=== PATIENT | female | born 1930 | race Caucasian/White ===

== ENCOUNTER 2016-05-10 12:06 | Outpatient (CLI) | payer MEDICARE ==
[2016-05-10 12:32] LABS: #Basophils 0.1 thou/uL (0.0-0.2); #Eosinphils 0.2 thou/uL (0.0-0.7); #Monocytes 0.9 thou/uL (0.11-0.59); #Neutrophils 5.6 thou/uL (1.40-6.50); %Basophils 0.8 % (0.0-1.0); %Eosinophils 1.8 % (0.0-10.0); %Lymphocytes 22.9 % (21.0-51.0); %Monocytes 10.6 % (0.0-10.0); %Neutrophils 63.9 % (42.0-75.0); Hemoglobin 13.3 g/dL (12.0-16.0); Mean Corpuscular HGB CONC 32.3 g/dL (32.0-36.0); Mean Corpuscular Hemoglobin 33.7 pg (27.0-31.0); Mean Corpuscular Volume 104.1 fl (81.0-99.0); Mean Platelet Volume 7.5 fL (7.4-10.4); Platelet Count 215 thou/uL (130-400); RBC Distribution Width 12.7 % (11.5-14.5); Red Blood Cell (RBC) Count 3.94 mill/uL (4.20-5.40); White Blood Cell (WBC) Count 8.8 thou/uL (4.8-10.8)
[2016-05-10 12:57] LABS: ALT (SGPT) 20 U/L (0-55); AST (SGOT) 20 U/L (5-34); Alkaline Phosphatase 68 U/L (40-150); Anion Gap 11 mmol/L (10-20); BUN (Urea Nitrogen) 16 mg/dL (9.8-20.1); Bilirubin, Direct 0.3 mg/dL (0.1-0.3); Bilirubin, Total 0.6 mg/dL (0.2-1.2); Calc. Creatinine Clearance 0 mL/min (70-130); Calcium 9.7 mg/dL (7.8-10.44); Carbon Dioxide 27 mmol/L (23-31); Cardiac Risk 2.3 (Less than 4.5); Chloride 106 mmol/L (98-107); Cholesterol 152 mg/dL (< 200 Desired); Estimated GFR-MDRD 64; Glucose 95 mg/dL (83-110); HDL Cholesterol 65 mg/dL (>60 Neg Risk); LDL Cholesterol, Calculated 66 mg/dL; Protein, Total 6.2 g/dL (5.8-8.1); Sodium 139 mmol/L (136-145); Triglycerides 104 mg/dL (Less than 150)
== END 2016-05-10 12:07 | disposition home or self-care (01) ==
LOC: MADLABBHPM 12:06
PROVIDERS: ATTEND Family Medicine
DX: I48.0 Paroxysmal atrial fibrillation (principal); E78.00 Pure hypercholesterolemia, unspecified; E03.9 Hypothyroidism, unspecified
CPT/HCPCS: 36415; 80048; 80061; 80076; 84443; 85025

== ENCOUNTER 2016-07-12 10:26 | Outpatient (CLI) | payer MEDICARE ==
[2016-07-12 11:35] LABS: ALT (SGPT) 14 U/L (8-55); AST (SGOT) 16 U/L (5-34); Albumin 4.1 g/dL (3.4-4.8); Alkaline Phosphatase 70 U/L (40-150); Anion Gap 12 mmol/L (10-20); BUN (Urea Nitrogen) 15 mg/dL (9.8-20.1); Bilirubin, Total 0.8 mg/dL (0.2-1.2); Calc. Creatinine Clearance 0 mL/min (70-130); Calcium 9.9 mg/dL (7.8-10.44); Carbon Dioxide 25 mmol/L (23-31); Chloride 109 mmol/L (98-107); Estimated GFR-MDRD 69; Globulin 2.2 g/dL (2.4-3.5); Glucose 97 mg/dL (83-110); Potassium 4.1 mmol/L (3.5-5.1); Protein, Total 6.3 g/dL (6.0-8.3); Sodium 142 mmol/L (136-145)
[2016-07-12 12:43] LABS: Mean Corpuscular HGB CONC 34.3 g/dL (32.0-36.0); Mean Corpuscular Hemoglobin 35.5 pg (27.0-31.0); Mean Platelet Volume 7.7 fL (7.4-10.4); Platelet Count 208 thou/uL (130-400); RBC Distribution Width 11.5 % (11.5-14.5); Red Blood Cell (RBC) Count 3.95 mill/uL (4.20-5.40); White Blood Cell (WBC) Count 8.1 thou/uL (4.8-10.8)
== END 2016-07-12 10:27 | disposition home or self-care (01) ==
LOC: MADLAB 10:26
PROVIDERS: ATTEND Internal Medicine Cardiovascular Disease
DX: I48.0 Paroxysmal atrial fibrillation (principal)
CPT/HCPCS: 36415; 80053; 85027

== ENCOUNTER 2016-11-08 09:37 | Outpatient (CLI) | payer MEDICARE ==
--- NOTE | 2016-11-08 10:15 | RAD ---
TWO VIEWS CHEST: History: Weight loss. Date: 11-08-16 Comparison: 06-10-12 FINDINGS: Two views of the chest demonstrate calcification and ectasia of the aorta. Hyperaeration and airtrap ping compatible with changes of COPD seen. No evidence of effusions seen. IMPRESSION: Airtrapping and changes of COPD. POS: [facility]
[2016-11-08 11:12] LABS: ALT (SGPT) 21 U/L (8-55); AST (SGOT) 22 U/L (5-34); Alkaline Phosphatase 71 U/L (40-150); Anion Gap 11 mmol/L (10-20); BUN (Urea Nitrogen) 19 mg/dL (9.8-20.1); Bilirubin, Direct 0.3 mg/dL (0.1-0.3); Bilirubin, Total 0.7 mg/dL (0.2-1.2); Calc. Creatinine Clearance 0 mL/min (70-130); Calcium 10.5 mg/dL (7.8-10.44); Carbon Dioxide 27 mmol/L (23-31); Cardiac Risk 2.2 (Less than 4.5); Chloride 108 mmol/L (98-107); Cholesterol 142 mg/dl (< 200 Desired); Estimated GFR-MDRD 68; Glucose 95 mg/dL (83-110); HDL Cholesterol 65 mg/dL (>60 Neg Risk); LDL Cholesterol, Calculated 63 mg/dL; Potassium 4.5 mmol/L (3.5-5.1); Protein, Total 6.6 g/dL (6.0-8.3); Sodium 141 mmol/L (136-145); Triglycerides 70 mg/dL (Less than 150)
[2016-11-08 11:21] LABS: Free T4 (Free Thyroxine) 1.74 ng/dL (0.70-1.48); Thyroid Stimulating Hormone 0.0044 uIU/mL (0.35-4.94)
[2016-11-08 13:17] LABS: Bilirubin Negative (Negative); Blood, Urine Trace (Negative); Clarity Hazy (Clear); Glucose, Urine (Dipstick) Negative (Negative); Leukocyte Negative (Negative); Nitrite Negative (Negative); Protein, Urine (Dipstick) Trace mg/dL (Neg-Trace); Specific Gravity, Urine 1.015 (1.005-1.030); Urobilinogen 0.2 mg/dL (0.2-1.0); pH, Urine 6.5 (5.0-9.0)
[2016-11-08 13:39] LABS: Bacteria/HPF Rare-Few HPF (None Seen); RBC/HPF 0-3 HPF (0-3); Squamous Epithelial 0-3 HPF (0-3); WBC/HPF 0-3 HPF (0-3)
[2016-11-08 13:40] LABS: Crystals/HPF 1+ CA OXALATE HPF (Negative)
[2016-11-08 13:53] LABS: #Basophils 0.1 thou/uL (0.0-0.2); #Eosinphils 0.3 thou/uL (0.0-0.7); #Lymphocytes 1.4 thou/uL (1.20-3.40); #Monocytes 0.8 thou/uL (0.11-0.59); #Neutrophils 4.9 thou/uL (1.40-6.50); %Basophils 0.8 % (0.0-1.0); %Lymphocytes 18.9 % (21.0-51.0); %Monocytes 10.1 % (0.0-10.0); %Neutrophils 66.2 % (42.0-75.0); Hemoglobin 14.1 g/dL (12.0-16.0); Mean Corpuscular HGB CONC 31.3 g/dL (32.0-36.0); Mean Corpuscular Hemoglobin 31.8 pg (27.0-31.0); Mean Corpuscular Volume 101.4 fl (81.0-99.0); Mean Platelet Volume 8.3 fL (7.4-10.4); Platelet Count 223 thou/uL (130-400); RBC Distribution Width 11.5 % (11.5-14.5); Red Blood Cell (RBC) Count 4.43 mill/uL (4.20-5.40); White Blood Cell (WBC) Count 7.5 thou/uL (4.8-10.8)
== END 2016-11-08 09:38 | disposition home or self-care (01) ==
LOC: MADLABBHPM 09:37
PROVIDERS: ATTEND Family Medicine
DX: R63.4 Abnormal weight loss (principal); J44.9 Chronic obstructive pulmonary disease, unspecified
CPT/HCPCS: 36415; 71020; 80048; 80061; 80076; 80178; 81001; 84439; 84443; 84481; 85025

== ENCOUNTER 2017-09-14 14:50 | Outpatient (CLI) | payer MEDICARE ==
[2017-09-14 15:20] LABS: #Basophils 0.1 thou/uL (0.0-0.2); #Lymphocytes 1.2 thou/uL (1.20-3.40); #Monocytes 0.7 thou/uL (0.11-0.59); #Neutrophils 6.4 thou/uL (1.40-6.50); %Basophils 1.1 % (0.0-1.0); %Eosinophils 0.6 % (0.0-10.0); %Monocytes 8.1 % (0.0-10.0); %Neutrophils 76.2 % (42.0-75.0); Hemoglobin 11.7 g/dL (12.0-16.0); Mean Corpuscular HGB CONC 31.6 g/dL (32.0-36.0); Mean Corpuscular Hemoglobin 30.1 pg (27.0-31.0); Mean Corpuscular Volume 95.1 fL (78.0-98.0); Mean Platelet Volume 6.6 fL (7.4-10.4); Platelet Count 262 thou/uL (130-400); Red Blood Cell (RBC) Count 3.89 mill/uL (4.20-5.40); White Blood Cell (WBC) Count 8.4 thou/uL (4.8-10.8)
[2017-09-14 15:36] LABS: ALT (SGPT) 17 U/L (8-55); AST (SGOT) 18 U/L (5-34); Albumin 4.2 g/dL (3.4-4.8); Alkaline Phosphatase 61 U/L (40-150); Anion Gap 9 mmol/L (10-20); BUN (Urea Nitrogen) 17 mg/dL (9.8-20.1); Bilirubin, Total 0.4 mg/dL (0.2-1.2); Calc. Creatinine Clearance 0 mL/min (70-130); Calcium 9.9 mg/dL (7.8-10.44); Carbon Dioxide 27 mmol/L (23-31); Cardiac Risk 2.4 (Less than 4.5); Chloride 107 mmol/L (98-107); Cholesterol 180 mg/dl (< 200 Desired); Estimated GFR-MDRD 51; Globulin 2.4 g/dL (2.4-3.5); Glucose 98 mg/dL (83-110); HDL Cholesterol 75 mg/dL (>60 Neg Risk); LDL Cholesterol, Calculated 83 mg/dL; Potassium 4.1 mmol/L (3.5-5.1); Protein, Total 6.6 g/dL (6.0-8.3); Sodium 139 mmol/L (136-145); Triglycerides 108 mg/dL (Less than 150)
== END 2017-09-14 14:51 | disposition home or self-care (01) ==
LOC: MADLAB 14:50
PROVIDERS: ATTEND Internal Medicine Cardiovascular Disease
DX: I48.0 Paroxysmal atrial fibrillation (principal); E78.00 Pure hypercholesterolemia, unspecified; I10 Essential (primary) hypertension
CPT/HCPCS: 36415; 80053; 80061; 85025

== ENCOUNTER 2017-09-27 17:07 | Inpatient (IN) | payer MEDICARE ==
[2017-09-27] MEDS ORDERED: Bisacodyl 5 MG TAB PO PRN (21:33)
[2017-09-27] MEDS ORDERED: Ondansetron ODT 4 MG TAB PO PRN (21:34)
[2017-09-27] MEDS ORDERED: traZODone HCl 50 MG TAB PO PRN (21:37)
[2017-09-27] MEDS ORDERED: Metoprolol Tartrate 25 MG TAB PO SCH (21:45)
[2017-09-27] MEDS: Acetaminophen 325 MG TAB PO PRN (21:52)
[2017-09-28] MEDS: Acetaminophen 325 MG TAB PO PRN ×2 (02:47→15:11)
[2017-09-28 05:35] LABS: #Basophils 0.1 thou/uL (0.0-0.2); #Eosinphils 0.1 thou/uL (0.0-0.7); #Monocytes 0.8 thou/uL (0.11-0.59); #Neutrophils 4.9 thou/uL (1.40-6.50); %Basophils 1.1 % (0.0-1.0); %Eosinophils 2.2 % (0.0-10.0); %Lymphocytes 13.8 % (21.0-51.0); %Monocytes 11.4 % (0.0-10.0); %Neutrophils 71.5 % (42.0-75.0); Hemoglobin 9.3 g/dL (12.0-16.0); Mean Corpuscular HGB CONC 33.2 g/dL (32.0-36.0); Mean Corpuscular Hemoglobin 30.1 pg (27.0-31.0); Mean Corpuscular Volume 90.5 fL (78.0-98.0); Mean Platelet Volume 8.4 fL (7.4-10.4); Platelet Count 165 thou/uL (130-400); RBC Distribution Width 13.2 % (11.5-14.5); White Blood Cell (WBC) Count 6.9 thou/uL (4.8-10.8)
[2017-09-28 05:44] LABS: ALT (SGPT) 14 U/L (8-55); AST (SGOT) 20 U/L (5-34); Albumin 2.8 g/dL (3.4-4.8); Alkaline Phosphatase 66 U/L (40-150); Anion Gap 15 mmol/L (10-20); BUN (Urea Nitrogen) 12 mg/dL (9.8-20.1); Bilirubin, Total 1.2 mg/dL (0.2-1.2); Calc. Creatinine Clearance 38 mL/min (70-130); Calcium 8.7 mg/dL (7.8-10.44); Carbon Dioxide 20 mmol/L (23-31); Chloride 105 mmol/L (98-107); Estimated GFR-MDRD 81; Globulin 1.7 g/dL (2.4-3.5); Glucose 87 mg/dL (83-110); Potassium 3.9 mmol/L (3.5-5.1); Protein, Total 4.5 g/dL (6.0-8.3); Sodium 136 mmol/L (136-145)
[2017-09-28] MEDS ORDERED: Metoprolol Tartrate 25 MG TAB PO SCH (09:00)
[2017-09-28] MEDS ORDERED: traZODone HCl 50 MG TAB PO PRN (11:08)
[2017-09-28] MEDS ORDERED: Ventolin HFA Inhaler 60 PUFF INHALER INH PRN (11:14)
--- NOTE | 2017-09-28 13:08 | HP ---
DATE OF ADMISSION: Admitted to [facility] late on the evening of 09/27/2017. CHIEF COMPLAINT: Weakness following a hip fracture and repair. PRESENT ILLNESS: The patient is an 87-year-old white female who has a history of hypertension, parox ysmal atrial fibrillation for which she had been on Eliquis, hypothyroidism, bipolar disorder, insomn ia and cigarette abuse. The patient is independent of all her ADLs. She lives at her home with her who she assists with his ADLs. Her daughter lives next door who assist the patient and cheyanne eugene with their instrumental ADLs. The patient was in the [place] taking her to a dermatology appointment. She said she was i n the hallways of the building and her fell against her knocking her to the floor, landing on her left hip. She had immediate pain in the left hip and could not get up. There were people they came to her assistance and called 911. She was taken to [facility] and found to have a left in tertrochanteric fracture of the hip with some mild displacement. There she was admitted and after ev aluation and cleared for surgery, she underwent a CT of the brain, although she said she did not hit her head nor had any loss of consciousness. The CT of the brain showed no acute intracranial process and only age related changes. She underwent chest x-ray which was clear, but showed hyperinflation. X-ray of the left hip show the intertrochanteric fracture with some mild displacement. Echocardiog sergei showed normal left ventricular function with an ejection fraction of 55-60% with moderate aortic insufficiency. Her admission H&H was 11.2. The patient was taken to surgery on 09/21/2017 by orthop edic surgeon, Dr. Gerald Stevens. The patient underwent intramedullary carloz placement and a gamma nail. Postoperatively, she had some problems with confusion that was related to the anesthesia that resol kenrick. Her blood count gradually dropped down to a low of 6.7 and she said she had received a transfus ion. Her blood thinner, Eliquis was stopped after her surgery and it has not been restarted. The pa tino said she has done well. She has been managing her pain with Tylenol or acetaminophen, hydrocod one 325/10 one occasionally. She has been up walking up to 60 feet and has already walked some this morning. The patient's condition improved. She said she did have a little episode of atrial fibrill ation postop, but then has no more problem with this. The patient was transferred to [facility] late on the evening of 09/27/2017 for continued physical therapy and occupational therapy. The pat natividad was seen early on the morning of 09/28/2017 and she was able to review the history of what has h appened with her. She said she has already been up and walked some with physical therapy. Her pain has been well managed. PAST HISTORY: Hospitalized at [facility] in [place] from 09/20/2017 to 09/27/2017 for an intertrochanteric fracture of the left hip requiring surgery on 09/21/2017 with an intramedullary ro d and gamma nail placement. The patient required transfusion with 2 units due to a postop anemia. T he patient has hypertension, hypothyroidism, bipolar disorder, controlled on lithium, hypercholestero lemia, cataracts, TIA, but no recent episode, insomnia, paroxysmal atrial fibrillation for which she has been on Eliquis. In the past, she was on metoprolol and low dose, but this had to be stopped due to bradycardia. The patient has had an appendectomy in 1946 and a benign tumor removed from her left breast in 1955, a hysterectomy in 1977, cataract surgery with intraocular lens implants 2006, bladder suspension in . BTL 1953. Tremors are felt to be secondary to the lithium, generalized osteoarthritis, chronic cigarette abuse. Temporal headaches that are musculoskeletal in origin. HOME MEDICATIONS: Her home medications are as follows; oxybutynin 5 mg once a day, lithium carbonate 300 mg 1 daily and b.i.d. on Sunday and Fridays, trazodone 50 mg 2 at bedtime and may take a third i f does not go to sleep within an hour. Eliquis 2.5 mg b.i.d., which has been on hold since her surg kalie. Albuterol inhaler 2 inhalations q.i.d. and q.4h. as needed, levothyroxine 75 mcg daily, Tyleno l Extra Strength 500 mg 2 every 6 hours as needed. ALLERGIES: METOPROLOL causes bradycardia. REVIEW OF SYSTEMS: The patient says she is doing better. She does not think she has had any fever. HEENT: She has had no trouble with eye, ear, nose or throat. PULMONARY: No shortness of breath. CARDIOVASCULAR: No chest pain. GASTROINTESTINAL: No nausea or vomiting. The patient said she has not had any trouble with her wendy ls. Usually does not need anything at home. : No complaint. ADLs: Prior to her surgery, she was independent of her ADLs. HABITS: Alcohol none. Tobacco, the patient smokes for many years and continues to smoke less than a half a pack a day. Alcohol none. SOCIAL HISTORY: The patient is and lives at home with her who she assists with his A DLs. PHYSICAL EXAMINATION: GENERAL: The patient is an 87-year-old white female who has an asthenic build. She is sitting up in her bedside chair. She is alert, oriented x3, very talkative and could give me an excellent history of what had recently happened to her. She does not appear in any distress. VITAL SIGNS: Shows a temperature of 99.4, pulse 69, respirations 20, O2 sat 95% on room air. Her bl ood pressure is 126/60. Her weight is 95. Her weight in my office last on 06/11/2017 was 94, height 64 inches. HEAD: Normocephalic and atraumatic. EYES: Pupils were equal, round, reactive with bilateral intraocular lens implants. EARS: TMs are clear. NOSE: Normal. MOUTH AND THROAT: Normal. NECK: Carotids were equal and strong, no bruits. Thyroid not enlarged. LUNGS: Clear. HEART: Regular rate. No murmurs. ABDOMEN: Soft with no organomegaly, nor areas of tenderness. EXTREMITIES: Left hip, there is bruising around the left hip. She has 2 incisions, 1 over the troch anteric area and 1 more distal, both of these incisions are healing well and have madai present. D istal extremities showed no edema. NEUROLOGIC: The patient alert, oriented x3. The patient has weakness in the left leg from her recen t hip surgery. Otherwise, there is no focal weakness. LABORATORY: The lab that was done this morning shows a sodium of 136, potassium of 3.9, chloride 10 5, CO2 20, BUN 12, creatinine 0.68, GFR 81, glucose 87, AST 20, ALT 14, albumin 2.8. TSH 1.72. Lith ium level pending. H&H 9.3 and 28.1, white blood cell count 6900 with 72% segs, 14% lymphocytes, and a platelet count of 165,000. IMPRESSION: 1. Generalized weakness. A. Secondary to a fall with fracture of the left hip on 09/20/2017 and repair on 09/21/2017. B. Prior to fall she was independent of her ADLs. C. Complicated now by some generalized weakness and the need for assistance with her ADLs as of 09/19. 2. Hypertension, controlled. 3. Paroxysmal atrial fibrillation. A. Rate controlled. B. Has been on anticoagulants with Eliquis, but this has been held since her hip fracture and surger y. C. History of significant bradycardia on metoprolol which she has not been on for over a year. 4. Hypertension, controlled. 5. Hypothyroidism. A. Good control on levothyroxine 75 mcg a day with a normal TSH of 1.7. 6. Bipolar disorder. A. Controlled on lithium. 7. Insomnia. A. Controlled on trazodone. 8. Anemia. A. Secondary to recent blood loss from hip fracture and surgical repair. B. Required transfusion in the postop period with 2 units of packed RBCs. C. Hemoglobin 9.3 as of 09/28/2017. 9. Urge incontinence. A. Controlled with oxybutynin. 10. Tobacco abuse. A. Continues to smoke less than a half a pack of cigarettes a day. 11. Generalized osteoarthritis. PLAN: The patient has been admitted to [facility] to extended care for purpose of continued ph ysical therapy and occupational therapy. Her incision is healing well. Her Eliquis will be resumed once her H&H can be been demonstrated as maintaining stability and improvement. We will stop the met oprolol since this in the past has created problems with bradycardia. Her rate is well controlled an d she is presently in a sinus rhythm. We will continue GI prophylaxis. Place the patient in [facility] e. See orders.
[2017-09-28] MEDS: Docusate 100 MG CAP PO SCH (20:30)
[2017-09-28] MEDS: traZODone HCl 50 MG TAB PO SCH (20:31)
[2017-09-28] MEDS: HYDROcodone/Acetaminophen 10/325 mg Tablet PO PRN (20:31)
[2017-09-28] MEDS ORDERED: Lithium Carbonate 300 MG CAP PO SCH (21:00)
[2017-09-29 05:18] LABS: #Basophils 0.1 thou/uL (0.0-0.2); #Eosinphils 0.2 thou/uL (0.0-0.7); #Lymphocytes 1.6 thou/uL (1.20-3.40); #Monocytes 0.9 thou/uL (0.11-0.59); #Neutrophils 4.5 thou/uL (1.40-6.50); %Basophils 1.7 % (0.0-1.0); %Eosinophils 2.9 % (0.0-10.0); %Lymphocytes 22.2 % (21.0-51.0); %Monocytes 12.2 % (0.0-10.0); Hemoglobin 10.2 g/dL (12.0-16.0); Mean Corpuscular HGB CONC 33.4 g/dL (32.0-36.0); Mean Corpuscular Hemoglobin 30.6 pg (27.0-31.0); Mean Corpuscular Volume 91.9 fL (78.0-98.0); Mean Platelet Volume 8.3 fL (7.4-10.4); Platelet Count 214 thou/uL (130-400); RBC Distribution Width 13.7 % (11.5-14.5); Red Blood Cell (RBC) Count 3.32 mill/uL (4.20-5.40); White Blood Cell (WBC) Count 7.4 thou/uL (4.8-10.8)
[2017-09-29] MEDS: HYDROcodone/Acetaminophen 10/325 mg Tablet PO PRN ×3 (05:59→20:26)
[2017-09-29] MEDS: Docusate 100 MG CAP PO SCH ×2 (08:40→20:26)
[2017-09-29] MEDS: Levothyroxine Sodium 75 MCG TAB PO SCH (08:40)
[2017-09-29] MEDS ORDERED: Lithium Carbonate 300 MG CAP PO SCH (09:00)
[2017-09-29] MEDS: traZODone HCl 50 MG TAB PO SCH (20:26)
[2017-09-30] MEDS: HYDROcodone/Acetaminophen 10/325 mg Tablet PO PRN ×3 (04:50→20:14)
[2017-09-30] MEDS: Levothyroxine Sodium 75 MCG TAB PO SCH (09:58)
[2017-09-30] MEDS: Docusate 100 MG CAP PO SCH ×2 (09:59→20:14)
[2017-09-30] MEDS: traZODone HCl 50 MG TAB PO SCH (20:14)
[2017-09-30] MEDS: traZODone HCl 50 MG TAB PO PRN (23:09)
[2017-10-01] MEDS: HYDROcodone/Acetaminophen 10/325 mg Tablet PO PRN ×2 (00:11→19:13)
[2017-10-01 07:12] LABS: #Basophils 0.1 thou/uL (0.0-0.2); #Eosinphils 0.3 thou/uL (0.0-0.7); #Lymphocytes 1.8 thou/uL (1.20-3.40); #Monocytes 0.7 thou/uL (0.11-0.59); #Neutrophils 3.4 thou/uL (1.40-6.50); %Eosinophils 4.9 % (0.0-10.0); %Lymphocytes 29.1 % (21.0-51.0); %Monocytes 10.7 % (0.0-10.0); %Neutrophils 54.3 % (42.0-75.0); Hemoglobin 9.5 g/dL (12.0-16.0); Mean Corpuscular HGB CONC 31.6 g/dL (32.0-36.0); Mean Corpuscular Volume 94.9 fL (78.0-98.0); Mean Platelet Volume 6.8 fL (7.4-10.4); Platelet Count 280 thou/uL (130-400); RBC Distribution Width 15.3 % (11.5-14.5); Red Blood Cell (RBC) Count 3.17 mill/uL (4.20-5.40); White Blood Cell (WBC) Count 6.3 thou/uL (4.8-10.8)
[2017-10-01 07:33] LABS: Anion Gap 7 mmol/L (10-20); BUN (Urea Nitrogen) 11 mg/dL (9.8-20.1); Calc. Creatinine Clearance 37 mL/min (70-130); Calcium 8.4 mg/dL (7.8-10.44); Carbon Dioxide 26 mmol/L (23-31); Chloride 110 mmol/L (98-107); Estimated GFR-MDRD 78; Glucose 81 mg/dL (83-110); Potassium 4.2 mmol/L (3.5-5.1); Sodium 139 mmol/L (136-145)
[2017-10-01] MEDS: Docusate 100 MG CAP PO SCH ×2 (08:25→20:30)
[2017-10-01] MEDS: Levothyroxine Sodium 75 MCG TAB PO SCH (08:25)
--- NOTE | 2017-10-01 15:06 | PRG ---
DATE OF SERVICE: 09/29/2017 SUBJECTIVE: The patient said she is doing good this morning. She has already been up and had her br eakfast and now is resting back in bed. She said she slept good last night. She walked in the [facility] with physical therapy twice yesterday. Her pain in the left hip is well managed. She has no com plaint this morning. OBJECTIVE: The patient is lying in bed with the head elevated. She looks very comfortable and in no distress. Her vital signs show a temperature 98.8, pulse 69, respirations 20, O2 sat 96% on room ai r, blood pressure 139/63. Her lungs are clear. Heart, regular rate. Extremities, no edema. Incisi ons left hip are healing well. LABORATORY DATA: H&H this morning is up to 10.2 and 30.5, white cell count 7400 with platelet count of 214 with 61% segs, 22% lymphocytes. Tiffin level is 0.5. ASSESSMENT: 1. Generalized weakness. A. Secondary to a fall with fracture of the left hip on 09/20/2017 and repair on 09/21/2017. B. Prior to fall she was independent of her ADLs. C. Complicated now by some generalized weakness and the need for assistance with her ADLs as of 09/19. D. Improved as of 09/29/2017. 2. Hypertension, controlled. 3. Paroxysmal atrial fibrillation. A. Rate is regular with a pulse of 69 as of 09/29/2017. B. Has been on anticoagulants with Eliquis, but this has been held since her hip fracture and surger y. C. History of significant bradycardia on metoprolol which she has not been on for over a year. 4. Hypertension, controlled. 5. Hypothyroidism. A. Good control on levothyroxine 75 mcg a day with a normal TSH of 1.7. 6. Bipolar disorder. A. Controlled on lithium. 7. Insomnia. A. Controlled on trazodone. 8. Anemia. A. Secondary to recent blood loss from hip fracture and surgical repair. B. Required transfusion in the postop period with 2 units of packed RBCs. C. Hemoglobin 10.2 as of 09/29/2017. 9. Urge incontinence. A. Controlled with oxybutynin. 10. Tobacco abuse. A. Continues to smoke less than a half a pack of cigarettes a day. 11. Generalized osteoarthritis. PLAN: Continue present care. If the patient's hemoglobin continues to remain stable over the next f ew checks, we will restart her Eliquis for the paroxysmal atrial fibrillation.
--- NOTE | 2017-10-01 15:08 | PRG ---
DATE OF SERVICE: 10/01/2017 SUBJECTIVE: The patient said she is doing good today. She has already been up walking. Presently, she is in the [place] with a walker and therapist accompanying her. She is doing better with the walker and still needs assistance with her transfers. OBJECTIVE: The patient is standing, holding onto her walker and has been walking. She appears comfo rtable. She has some tremors in her arm, which are chronic, but she appears in no distress and comfo rtable. Vital signs show a temperature 97.4, pulse 67, respirations 20, O2 sat 92% on room air, bloo d pressure 155/67. Lungs were clear. Heart, regular rate. Extremities: No edema. LABORATORY DATA: Her H and H is 9.5 and 30.1, white blood cell count 6300, platelet count is 280,000 . Sodium 139, potassium 4.2, BUN 11, creatinine 0.71, glucose 81. ASSESSMENT: 1. Generalized weakness. A. Secondary to a fall with fracture of the left hip on 09/20/2017 and repair on 09/21/2017. B. Prior to fall she was independent of her ADLs. C. Complicated now by some generalized weakness and the need for assistance with her ADLs as of 09/19. D. Improved, ambulating with the use of a walker. Still needing assistance with transfers as of . 2. Hypertension, controlled. 3. Paroxysmal atrial fibrillation. A. Regular rate with good control as of 10/01/2017. B. Has been on anticoagulants with Eliquis, but this has been held since her hip fracture and surger y. C. History of significant bradycardia on metoprolol which she has not been on for over a year. 4. Hypertension, controlled. 5. Hypothyroidism. A. Good control on levothyroxine 75 mcg a day with a normal TSH of 1.7. 6. Bipolar disorder. A. Controlled on lithium. 7. Insomnia. A. Controlled on trazodone. 8. Anemia. A. Secondary to recent blood loss from hip fracture and surgical repair. B. Required transfusion in the postop period with 2 units of packed RBCs. C. Hemoglobin 9.5 as of 10/01/2017. 9. Urge incontinence. A. Controlled with oxybutynin. 10. Tobacco abuse. A. Continues to smoke less than a half a pack of cigarettes a day. 11. Generalized osteoarthritis. PLAN: We will continue the present care. If H and H will remain stable, we should be able to restar t the Eliquis soon. We will recheck a CBC on 10/03/2017. Continue PT and OT.
[2017-10-01] MEDS: traZODone HCl 50 MG TAB PO SCH (20:30)
[2017-10-01] MEDS: traZODone HCl 50 MG TAB PO PRN (22:48)
[2017-10-02] MEDS: HYDROcodone/Acetaminophen 10/325 mg Tablet PO PRN ×3 (00:32→23:04)
[2017-10-02] MEDS: Docusate 100 MG CAP PO SCH ×2 (08:23→20:49)
[2017-10-02] MEDS: Levothyroxine Sodium 75 MCG TAB PO SCH (08:23)
--- NOTE | 2017-10-02 12:56 | PRG ---
DATE OF SERVICE: 10/02/2017 SUBJECTIVE: The patient said she is doing good. She is making progress with therapies. She is havi ng some tremors in her hand and some numbness in her hands. OBJECTIVE: The patient is alert, looks very comfortable, in no distress. Her temperature is 97.8, p ulse 67, respirations 18, O2 sat 94% on room air, blood pressure 111/58. Lungs are clear. Heart, re gular rate. Extremities, no edema. Incisions on the left hip are healing well. ASSESSMENT: 1. Generalized weakness. A. Secondary to a fall with fracture of the left hip on 09/20/2017 and repair on 09/21/2017. B. Prior to fall she was independent of her ADLs. C. Complicated now by some generalized weakness and the need for assistance with her ADLs as of 09/19. D. Improved, ambulating with the use of a walker. Still needing assistance with transfers as of . 2. Hypertension, controlled. 3. Paroxysmal atrial fibrillation. A. Regular rate with good control as of 10/02/2017. B. Has been on anticoagulants with Eliquis, but this has been held since her hip fracture and surger y. C. History of significant bradycardia on metoprolol which she has not been on for over a year. 4. Hypertension, controlled. 5. Hypothyroidism. A. Good control on levothyroxine 75 mcg a day with a normal TSH of 1.7. 6. Bipolar disorder. A. Controlled on lithium. 7. Insomnia. A. Controlled on trazodone. 8. Anemia. A. Secondary to recent blood loss from hip fracture and surgical repair. B. Required transfusion in the postop period with 2 units of packed RBCs. C. Hemoglobin 9.5 as of 10/01/2017. 9. Urge incontinence. A. Controlled with oxybutynin. 10. Tobacco abuse. A. Continues to smoke less than a half a pack of cigarettes a day. 11. Generalized osteoarthritis. PLAN: Continue present care. Continue physical therapy. The numbness in the hands could be a carpa l tunnel with the increased exercise and use of a walker. We will observe this for now unless this d oes not resolve or gets worse. We will recheck CBC in the morning. If H and H remained stable, cons ider restarting the Eliquis. We will remove skin madai from incision 2 weeks postop, which will be on 10/05/2017.
[2017-10-02] MEDS: traZODone HCl 50 MG TAB PO SCH (20:49)
[2017-10-03] MEDS: traZODone HCl 50 MG TAB PO PRN (00:54)
[2017-10-03 05:42] LABS: #Basophils 0.1 thou/uL (0.0-0.2); #Monocytes 0.7 thou/uL (0.11-0.59)
[2017-10-03] MEDS: Docusate 100 MG CAP PO SCH ×2 (08:16→20:37)
[2017-10-03] MEDS: Levothyroxine Sodium 75 MCG TAB PO SCH (08:16)
[2017-10-03] MEDS: HYDROcodone/Acetaminophen 10/325 mg Tablet PO PRN ×3 (08:17→20:38)
--- NOTE | 2017-10-03 10:09 | PRG ---
DATE OF SERVICE: 10/03/2017 SUBJECTIVE: The patient thinks she is doing alright. She is doing good with her walking, still requ iring assistance with transfers. OBJECTIVE: GENERAL: The patient is lying in bed. She is alert, appears comfortable in no distress. VITAL SIGNS: Temperature is 98, pulse 67, respirations 18, O2 sat 94% on room air, blood pressure 11 1/57. LUNGS: Clear. HEART: Regular rate. EXTREMITIES: No edema. Incisions over the left hip are healing. LABORATORY DATA: CBC pending. ASSESSMENT: 1. Generalized weakness. A. Secondary to a fall with fracture of the left hip on 09/20/2017 and repair on 09/21/2017. B. Prior to fall she was independent of her ADLs. C. Complicated now by some generalized weakness and the need for assistance with her ADLs as of 09/19. D. Improved, ambulating with the use of a walker. Still needing assistance with transfers as of . 2. Hypertension, controlled. 3. Paroxysmal atrial fibrillation. A. Regular rate with good control as of 10/02/2017. B. Has been on anticoagulants with Eliquis, but this has been held since her hip fracture and surger y. C. History of significant bradycardia on metoprolol which she has not been on for over a year. 4. Hypertension, controlled. 5. Hypothyroidism. A. Good control on levothyroxine 75 mcg a day with a normal TSH of 1.7. 6. Bipolar disorder. A. Controlled on lithium. 7. Insomnia. A. Controlled on trazodone. 8. Anemia. A. Secondary to recent blood loss from hip fracture and surgical repair. B. Required transfusion in the postop period with 2 units of packed RBCs. C. Hemoglobin 9.5 as of 10/01/2017. 9. Urge incontinence. A. Controlled with oxybutynin. 10. Tobacco abuse. A. Continues to smoke less than a half a pack of cigarettes a day. 11. Generalized osteoarthritis. PLAN: Continue PT. Continue OT. We will see what the blood count looks like today. If remains sta ble, consider restarting her Eliquis.
[2017-10-03 12:31] LABS: #Eosinphils 0.2 thou/uL (0.0-0.7); #Lymphocytes 1.4 thou/uL (1.20-3.40); #Neutrophils 4.2 thou/uL (1.40-6.50); %Eosinophils 3.7 % (0.0-10.0); %Lymphocytes 21.5 % (21.0-51.0); %Monocytes 10.2 % (0.0-10.0); %Neutrophils 63.5 % (42.0-75.0); Hemoglobin 9.4 g/dL (12.0-16.0); Mean Corpuscular Hemoglobin 30.3 pg (27.0-31.0); Mean Corpuscular Volume 94.6 fL (78.0-98.0); Mean Platelet Volume 6.3 fL (7.4-10.4); Platelet Count 330 thou/uL (130-400); RBC Distribution Width 15.1 % (11.5-14.5); Red Blood Cell (RBC) Count 3.09 mill/uL (4.20-5.40); White Blood Cell (WBC) Count 6.5 thou/uL (4.8-10.8)
[2017-10-03] MEDS: traZODone HCl 50 MG TAB PO SCH (20:37)
[2017-10-04] MEDS: HYDROcodone/Acetaminophen 10/325 mg Tablet PO PRN ×2 (04:30→18:11)
[2017-10-04] MEDS: Levothyroxine Sodium 75 MCG TAB PO SCH (05:39)
[2017-10-04] MEDS: Docusate 100 MG CAP PO SCH ×2 (08:26→21:04)
--- NOTE | 2017-10-04 15:00 | PRG ---
DATE OF SERVICE: 10/04/2017 SUBJECTIVE: The patient thinks she is doing better. She seems stronger. She said she thinks she is transferring a little better. She said the numbness in the hands are better. Yesterday, the therap ist worked with her hands. OBJECTIVE: GENERAL: The patient is sitting up in her bedside chair, just starting her breakfast. VITAL SIGNS: Show a temperature of 97.7, pulse 64, respirations 16, O2 sat 94% on room air, blood pr essure 127/60. LUNGS: Clear. HEART: Regular rate. EXTREMITIES: No edema. LABORATORY DATA: H&H yesterday was 9.4 and 29.3. White cell count 6500 with 64% segs, 22% lymphocyt es, and a platelet count of 330,000. ASSESSMENT: 1. Generalized weakness. A. Secondary to a fall with fracture of the left hip on 09/20/2017 and repair on 09/21/2017. B. Prior to fall she was independent of her ADLs. C. Complicated now by some generalized weakness and the need for assistance with her ADLs as of 09/19. D. Improved, ambulating with the use of a walker. Still needing assistance with transfers as of . 2. Hypertension, controlled. 3. Paroxysmal atrial fibrillation. A. Regular rate with good control as of 10/04/2017. B. Has been on anticoagulants with Eliquis, but this has been held since her hip fracture and surger y. C. History of significant bradycardia on metoprolol which she has not been on for over a year. 4. Hypertension, controlled. 5. Hypothyroidism. A. Good control on levothyroxine 75 mcg a day with a normal TSH of 1.7. 6. Bipolar disorder. A. Controlled on lithium. 7. Insomnia. A. Controlled on trazodone. 8. Anemia. A. Secondary to recent blood loss from hip fracture and surgical repair. B. Required transfusion in the postop period with 2 units of packed RBCs. C. Hemoglobin 9.5 as of 10/01/2017. 9. Urge incontinence. A. Controlled with oxybutynin. 10. Tobacco abuse. A. Continues to smoke less than a half a pack of cigarettes a day. 11. Generalized osteoarthritis. PLAN: Continue present care. Continue OT, PT. We will recheck CBC in the morning.
[2017-10-04] MEDS: traZODone HCl 50 MG TAB PO SCH (21:05)
[2017-10-05] MEDS: HYDROcodone/Acetaminophen 10/325 mg Tablet PO PRN ×2 (04:00→21:54)
[2017-10-05] MEDS: Levothyroxine Sodium 75 MCG TAB PO SCH (05:03)
[2017-10-05 05:28] LABS: #Basophils 0.1 thou/uL (0.0-0.2); #Eosinphils 0.2 thou/uL (0.0-0.7); #Lymphocytes 1.4 thou/uL (1.20-3.40); #Monocytes 0.7 thou/uL (0.11-0.59); #Neutrophils 4.9 thou/uL (1.40-6.50); %Eosinophils 3.2 % (0.0-10.0); %Lymphocytes 18.8 % (21.0-51.0); Hemoglobin 9.6 g/dL (12.0-16.0); Mean Corpuscular HGB CONC 32.4 g/dL (32.0-36.0); Mean Corpuscular Hemoglobin 30.8 pg (27.0-31.0); Mean Corpuscular Volume 95.1 fL (78.0-98.0); Mean Platelet Volume 6.2 fL (7.4-10.4); Platelet Count 397 thou/uL (130-400); RBC Distribution Width 15.1 % (11.5-14.5); Red Blood Cell (RBC) Count 3.12 mill/uL (4.20-5.40); White Blood Cell (WBC) Count 7.3 thou/uL (4.8-10.8)
[2017-10-05] MEDS: Docusate 100 MG CAP PO SCH ×2 (08:31→20:44)
--- NOTE | 2017-10-05 13:16 | PRG ---
DATE OF SERVICE: 10/05/2017 SUBJECTIVE: The patient is doing better. She is working with physical therapy and walking with her walker with wheels and now is walking up to 150 feet twice a day with standby assistance. She is req uiring supervision with her transfers because she is still a little unsteady with this. The patient does not have any breathing trouble. Overall, she is feeling well. OBJECTIVE: The patient is sitting up in her chair. She is alert, appears in no distress. Her tempe rature is 98.9, pulse 66, respirations 16, O2 sat 95%, blood pressure 149/68, earlier 127/60. Her vianca ngs are clear. On deep inspiration there are some little mild crackles at base. Some of these are m ore chronic. Her heart has a regular rate. Extremities, no edema. The patient was able to stand on her own, but was just a little unsteady in the process of getting up to her feet. Once on her feet with her walker stabilizing her, she was fine. Her incision over the left hip is healing well. The madai will be removed today. Her H&H is 9.6 and 29.6, WBC count 7300 with 67% segs, 19% lymphocyte s, platelet count 397,000. ASSESSMENT: 1. Generalized weakness. A. Secondary to a fall with fracture of the left hip on 09/20/2017 and repair on 09/21/2017. B. Prior to fall she was independent of her ADLs. C. Complicated now by some generalized weakness and the need for assistance with her ADLs as of 09/19. D. Improved, ambulating up to 150 feet x2 with a rolling walker and standby assistance, doing better with her transfers, but still just a little unsteady, requiring standby assistance as of 10/05/2017. 2. Hypertension, controlled. 3. Paroxysmal atrial fibrillation. A. Regular rate with good control as of 10/05/2017. B. Has been on anticoagulants with Eliquis, but this has been held since her hip fracture and surger y. C. History of significant bradycardia on metoprolol which she has not been on for over a year. 4. Hypertension, controlled. 5. Hypothyroidism. A. Good control on levothyroxine 75 mcg a day with a normal TSH of 1.7. 6. Bipolar disorder. A. Controlled on lithium. 7. Insomnia. A. Controlled on trazodone. 8. Anemia. A. Secondary to recent blood loss from hip fracture and surgical repair. B. Required transfusion in the postop period with 2 units of packed RBCs. C. Stable with hemoglobin 9.6 as of 10/05/2017. 9. Urge incontinence. A. Controlled with oxybutynin. 10. Tobacco abuse. A. Continues to smoke less than a half a pack of cigarettes a day. 11. Generalized osteoarthritis. PLAN: The patient is doing better. Her strength is improving. She still needs physical therapy an d still needs some time and still more practice particularly with her transfers. The skin madai wi ll be removed from the 2 small incisions on the left hip. Her H&H has been stable and gradually impr oving. We will restart her Eliquis 2.5 mg b.i.d. for her paroxysmal atrial fibrillation and continue to monitor her H&H.
[2017-10-05] MEDS: Apixaban 5 MG TAB PO SCH ×2 (13:35→20:44)
[2017-10-05] MEDS: traZODone HCl 50 MG TAB PO SCH (20:48)
[2017-10-06] MEDS: HYDROcodone/Acetaminophen 10/325 mg Tablet PO PRN ×2 (01:44→08:17)
[2017-10-06] MEDS: Levothyroxine Sodium 75 MCG TAB PO SCH (05:52)
[2017-10-06] MEDS: Apixaban 5 MG TAB PO SCH ×2 (08:16→20:18)
[2017-10-06] MEDS: Docusate 100 MG CAP PO SCH ×2 (08:17→20:18)
[2017-10-06] MEDS: traZODone HCl 50 MG TAB PO SCH (20:18)
[2017-10-07] MEDS: HYDROcodone/Acetaminophen 10/325 mg Tablet PO PRN ×3 (00:26→20:16)
[2017-10-07] MEDS: Levothyroxine Sodium 75 MCG TAB PO SCH (05:52)
[2017-10-07] MEDS: Apixaban 5 MG TAB PO SCH ×2 (08:10→20:14)
[2017-10-07] MEDS: Docusate 100 MG CAP PO SCH ×2 (08:11→20:15)
[2017-10-07] MEDS: traZODone HCl 50 MG TAB PO SCH (20:15)
[2017-10-07] MEDS: Oxybutynin 5 MG TAB PO SCH (20:18)
[2017-10-08] MEDS: Levothyroxine Sodium 75 MCG TAB PO SCH (05:15)
[2017-10-08 05:23] LABS: #Basophils 0.1 thou/uL (0.0-0.2); #Eosinphils 0.2 thou/uL (0.0-0.7); #Lymphocytes 1.4 thou/uL (1.20-3.40); #Neutrophils 4.1 thou/uL (1.40-6.50); %Basophils 1.5 % (0.0-1.0); %Eosinophils 3.6 % (0.0-10.0); %Lymphocytes 20.2 % (21.0-51.0); %Monocytes 14.1 % (0.0-10.0); %Neutrophils 60.6 % (42.0-75.0); Hemoglobin 9.4 g/dL (12.0-16.0); Mean Corpuscular HGB CONC 31.8 g/dL (32.0-36.0); Mean Corpuscular Hemoglobin 30.6 pg (27.0-31.0); Mean Corpuscular Volume 96.1 fL (78.0-98.0); Platelet Count 406 thou/uL (130-400); RBC Distribution Width 15.3 % (11.5-14.5); Red Blood Cell (RBC) Count 3.07 mill/uL (4.20-5.40); White Blood Cell (WBC) Count 6.7 thou/uL (4.8-10.8)
[2017-10-08 05:35] LABS: Anion Gap 10 mmol/L (10-20); BUN (Urea Nitrogen) 15 mg/dL (9.8-20.1); Calc. Creatinine Clearance 40 mL/min (70-130); Calcium 8.6 mg/dL (7.8-10.44); Carbon Dioxide 24 mmol/L (23-31); Chloride 111 mmol/L (98-107); Estimated GFR-MDRD 84; Glucose 87 mg/dL (83-110); Potassium 4.5 mmol/L (3.5-5.1); Sodium 140 mmol/L (136-145)
[2017-10-08] MEDS: Docusate 100 MG CAP PO SCH ×2 (08:38→20:40)
[2017-10-08] MEDS: Apixaban 5 MG TAB PO SCH ×2 (08:39→20:42)
--- NOTE | 2017-10-08 08:47 | PRG ---
DATE OF SERVICE: 10/07/2017 SUBJECTIVE: The patient said she is doing fine. She has had a busy morning. She has been up walkin g and has had a shower, had breakfast. Now she is back in bed resting before lunch. She had her ski n madai taken out of her hip. Two days ago, that area is healing well. She has no complaint. She has no trouble since. We will restart the Eliquis. OBJECTIVE: GENERAL: The patient is lying in bed, alert, talkative, appears very comfortable in no distress. VITAL SIGNS: Her temperature is 98.4, pulse 73, respirations 18, O2 sat 94% on room air, blood press ure 132/74. LUNGS: Clear. HEART: Regular rate. EXTREMITIES: No edema. ASSESSMENT: 1. Generalized weakness. A. Secondary to a fall with fracture of the left hip on 09/20/2017 and repair on 09/21/2017. B. Prior to fall she was independent of her ADLs. C. Complicated now by some generalized weakness and the need for assistance with her ADLs as of 09/19. D. Improved, ambulating up to 150 feet x2 with a rolling walker and standby assistance, doing better with her transfers, but still just a little unsteady, requiring standby assistance as of 10/07/2017. 2. Hypertension, controlled. 3. Paroxysmal atrial fibrillation. A. Regular rate with good control as of 10/07/2017. B. Has been on anticoagulants with Eliquis, but this has been held since her hip fracture and surger y. C. History of significant bradycardia on metoprolol which she has not been on for over a year. 4. Hypertension, controlled. 5. Hypothyroidism. A. Good control on levothyroxine 75 mcg a day with a normal TSH of 1.7. 6. Bipolar disorder. A. Controlled on lithium. 7. Insomnia. A. Controlled on trazodone. 8. Anemia. A. Secondary to recent blood loss from hip fracture and surgical repair. B. Required transfusion in the postop period with 2 units of packed RBCs. C. Stable with hemoglobin 9.6 as of 10/05/2017. 9. Urge incontinence. A. Controlled with oxybutynin. 10. Tobacco abuse. A. Continues to smoke less than a half a pack of cigarettes a day. 11. Generalized osteoarthritis. PLAN: Continue present care. Continue PT and OT. We will start patient back on her oxybutynin that she takes 5 mg at nighttime. We will recheck CBC in the morning.
--- NOTE | 2017-10-08 08:49 | PRG ---
DATE OF SERVICE: 10/08/2017 SUBJECTIVE: The patient said she had a very good night. She slept well. This morning she is feelin g well, preparing to begin her work with physical therapy. She is having no trouble with her breathi ng. Her left hip feels good. OBJECTIVE: The patient is sitting up in a bedside chair. She is alert, talkative, appears very comf ortable and in no distress. Her vital signs shows temperature 98, pulse 71, respirations 18, O2 sat 96% on room air, blood pressure 137/73. Her lungs are clear except for some rales in the right poste rior base. Heart, regular rate. Extremities; no edema. LABORATORY: Shows a hemoglobin of 9.4, hematocrit 29.5, white cell count 6,700 with 61% segs, 20% ly mphocytes, platelet count of 406,000. Previous hemoglobin was 9.6, sodium 140, potassium 4.5, BUN 15 , creatinine 0.6, GFR 84, glucose 87. ASSESSMENT: 1. Generalized weakness. A. Secondary to a fall with fracture of the left hip on 09/20/2017 and repair on 09/21/2017. B. Prior to fall she was independent of her ADLs. C. Complicated now by some generalized weakness and the need for assistance with her ADLs as of 09/19. D. Improved. Ambulating up to 150 feet with a rolling walker and standby assistance. Improving wit h her transfer, but requiring some standby assistance as of 10/08/2017. 2. Hypertension, controlled. 3. Paroxysmal atrial fibrillation. A. Regular rate with good control as of 10/08/2017. B. Has been on anticoagulants with Eliquis, but this has been held since her hip fracture and surger y. C. History of significant bradycardia on metoprolol which she has not been on for over a year. 4. Hypothyroidism. A. Good control on levothyroxine 75 mcg a day with a normal TSH of 1.7. 5. Bipolar disorder. A. Controlled on lithium. 6. Insomnia. A. Controlled on trazodone. 7. Anemia. A. Secondary to recent blood loss from hip fracture and surgical repair. B. Required transfusion in the postop period with 2 units of packed RBCs. C. Stable with hemoglobin 9.6 as of 10/05/2017. Hemoglobin 9.4 as of 10/08/2017. 8. Urge incontinence. A. Controlled with oxybutynin. 9. Tobacco abuse. A. Continues to smoke less than a half a pack of cigarettes a day. 10. Generalized osteoarthritis. PLAN: Continue present care, continue PT. Will continue the Eliquis. Will recheck a hemoglobin on 10/10/2017.
[2017-10-08] MEDS: traZODone HCl 50 MG TAB PO SCH (20:42)
[2017-10-08] MEDS: Oxybutynin 5 MG TAB PO SCH (20:42)
[2017-10-08] MEDS: HYDROcodone/Acetaminophen 10/325 mg Tablet PO PRN (20:44)
[2017-10-09] MEDS: Levothyroxine Sodium 75 MCG TAB PO SCH (05:45)
[2017-10-09] MEDS: HYDROcodone/Acetaminophen 10/325 mg Tablet PO PRN ×2 (05:56→22:27)
[2017-10-09] MEDS: Apixaban 5 MG TAB PO SCH ×2 (08:26→20:04)
[2017-10-09] MEDS: Docusate 100 MG CAP PO SCH ×2 (08:27→20:02)
--- NOTE | 2017-10-09 12:38 | PRG ---
DATE OF SERVICE: 10/09/2017 SUBJECTIVE: The patient said she is doing good. Nurses reported that she had a small area of rednes s on her sacral area that developed into tiny blister that ruptured. This is being cleaned and dress ed with a Mepilex dressing. Physical therapist said the patient did very well with her walking with her walker, did much better with her transfers. OBJECTIVE: The patient is standing, holding on to her walker. She is alert, appears very comfortabl e, in no distress. Vital signs; temperature 98.5, pulse 70, respirations 16, O2 sat 95% on room air, blood pressure 149/71. Lungs, there are some early rales at the bases; otherwise clear. Heart, reg ular rate. Extremities; no edema. ASSESSMENT: 1. Generalized weakness. A. Secondary to a fall with fracture of the left hip on 09/20/2017 and repair on 09/21/2017. B. Prior to fall she was independent of her ADLs. C. Complicated now by some generalized weakness and the need for assistance with her ADLs as of 09/19. D. Improved, ambulating up to 150 feet with a rolling walker and just standby assistance. Transfers were improving and she is doing better with just standby assistance as of 10/09/2017. 2. Hypertension, controlled. 3. Paroxysmal atrial fibrillation. A. Regular rate with good control as of 10/09/2017. B. Has been on anticoagulants with Eliquis, but this has been held since her hip fracture and surger y. C. History of significant bradycardia on metoprolol which she has not been on for over a year. 4. Hypothyroidism. A. Good control on levothyroxine 75 mcg a day with a normal TSH of 1.7. 5. Bipolar disorder. A. Controlled on lithium. 6. Insomnia. A. Controlled on trazodone. 7. Anemia. A. Secondary to recent blood loss from hip fracture and surgical repair. B. Required transfusion in the postop period with 2 units of packed RBCs. C. Stable with hemoglobin 9.6 as of 10/05/2017. Hemoglobin 9.4 as of 10/08/2017. 8. Urge incontinence. A. Controlled with oxybutynin. 9. Tobacco abuse. A. Continues to smoke less than a half a pack of cigarettes a day. 10. Generalized osteoarthritis. PLAN: Continue present care. Continue physical therapy. Therapist in OT are working with [facility] [place] for her to probably return to her home on 10/12/2017.
[2017-10-09] MEDS: traZODone HCl 50 MG TAB PO SCH (20:03)
[2017-10-09] MEDS: Oxybutynin 5 MG TAB PO SCH (20:03)
[2017-10-10] MEDS: Acetaminophen 325 MG TAB PO PRN (00:16)
[2017-10-10 05:23] LABS: #Basophils 0.1 thou/uL (0.0-0.2); #Eosinphils 0.2 thou/uL (0.0-0.7); #Lymphocytes 1.3 thou/uL (1.20-3.40); #Monocytes 0.8 thou/uL (0.11-0.59); #Neutrophils 3.5 thou/uL (1.40-6.50); %Basophils 1.3 % (0.0-1.0); %Eosinophils 3.3 % (0.0-10.0); %Lymphocytes 21.8 % (21.0-51.0); %Monocytes 13.6 % (0.0-10.0); %Neutrophils 59.9 % (42.0-75.0); Hemoglobin 9.2 g/dL (12.0-16.0); Mean Corpuscular HGB CONC 32.5 g/dL (32.0-36.0); Mean Corpuscular Hemoglobin 30.9 pg (27.0-31.0); Mean Corpuscular Volume 95.1 fL (78.0-98.0); Mean Platelet Volume 5.8 fL (7.4-10.4); Platelet Count 373 thou/uL (130-400); RBC Distribution Width 15.1 % (11.5-14.5); Red Blood Cell (RBC) Count 2.97 mill/uL (4.20-5.40); White Blood Cell (WBC) Count 5.8 thou/uL (4.8-10.8)
[2017-10-10] MEDS: Levothyroxine Sodium 75 MCG TAB PO SCH (05:44)
[2017-10-10] MEDS: Apixaban 5 MG TAB PO SCH ×2 (09:02→20:49)
[2017-10-10] MEDS: Docusate 100 MG CAP PO SCH ×2 (09:02→20:49)
--- NOTE | 2017-10-10 09:39 | PRG ---
DATE OF SERVICE: 10/10/2017 SUBJECTIVE: The patient said she is feeling good. She has already been arounds the hallways for her first walk of the day. She said she is doing better with her walking. She is using her walker with wheels on the front. She is doing better on her transfers and feeling like she is going to be able to do okay with the tentative discharge date of 10/12/2017. OBJECTIVE: The patient is sitting up in her bedside chair preparing to have her breakfast. She is t alkative, alert, appears very comfortable, in no distress. Her vital signs shows a temperature of 97 .9, pulse 67, respirations 18, O2 saturation 96%, blood pressure 143/69. Lungs are clear except for some coarse early rales at the base that are chronic and more apparent with deeper inspiration. Ther e is no wheeze or rhonchi. Anterior chest is clear. Heart; regular rate. Extremities; no edema. The patient's lab shows a hemoglobin of 9.2 and 28.3 with a WBC count 5.8 with 60% segs, 22% lymphocy fletcher, platelet count of 373,000. ASSESSMENT: 1. Generalized weakness. A. Secondary to a fall with fracture of the left hip on 09/20/2017 and repair on 09/21/2017. B. Prior to fall she was independent of her ADLs. C. Complicated now by some generalized weakness and the need for assistance with her ADLs as of 09/19. D. Improved, ambulating up to 150 feet with a rolling walker and just standby assistance. Transfers were improving and she is doing better with just standby assistance as of 10/10/2017. 2. Hypertension, controlled. 3. Paroxysmal atrial fibrillation. A. Regular rate with good control as of 10/10/2017. B. Has been on anticoagulants with Eliquis, but this has been held since her hip fracture and surger y. C. History of significant bradycardia on metoprolol which she has not been on for over a year. 4. Hypothyroidism. A. Good control on levothyroxine 75 mcg a day with a normal TSH of 1.7. 5. Bipolar disorder. A. Controlled on lithium. 6. Insomnia. A. Controlled on trazodone. 7. Anemia. A. Secondary to recent blood loss from hip fracture and surgical repair. B. Required transfusion in the postop period with 2 units of packed RBCs. C. Hemoglobin 9.2 as of 10/10/2017. 8. Urge incontinence. A. Controlled with oxybutynin. 9. Tobacco abuse. A. Continues to smoke less than a half a pack of cigarettes a day. 10. Generalized osteoarthritis. PLAN: Continue present care. Repeat CBC in the morning. Continue PT and OT.
[2017-10-10] MEDS: HYDROcodone/Acetaminophen 10/325 mg Tablet PO PRN (20:48)
[2017-10-10] MEDS: Oxybutynin 5 MG TAB PO SCH (20:49)
[2017-10-10] MEDS: traZODone HCl 50 MG TAB PO SCH (20:49)
[2017-10-11] MEDS: HYDROcodone/Acetaminophen 10/325 mg Tablet PO PRN ×2 (02:02→21:40)
[2017-10-11] MEDS: Levothyroxine Sodium 75 MCG TAB PO SCH (05:47)
[2017-10-11 06:00] LABS: #Basophils 0.1 thou/uL (0.0-0.2); #Eosinphils 0.2 thou/uL (0.0-0.7); #Lymphocytes 1.3 thou/uL (1.20-3.40); #Monocytes 0.7 thou/uL (0.11-0.59); #Neutrophils 2.9 thou/uL (1.40-6.50); %Basophils 1.4 % (0.0-1.0); %Eosinophils 4.4 % (0.0-10.0); %Lymphocytes 24.7 % (21.0-51.0); %Neutrophils 55.5 % (42.0-75.0); Hemoglobin 9.4 g/dL (12.0-16.0); Mean Corpuscular HGB CONC 31.2 g/dL (32.0-36.0); Mean Corpuscular Volume 96.3 fL (78.0-98.0); Mean Platelet Volume 5.8 fL (7.4-10.4); Platelet Count 355 thou/uL (130-400); RBC Distribution Width 14.9 % (11.5-14.5); Red Blood Cell (RBC) Count 3.12 mill/uL (4.20-5.40); White Blood Cell (WBC) Count 5.1 thou/uL (4.8-10.8)
[2017-10-11] MEDS: Docusate 100 MG CAP PO SCH ×2 (08:12→20:46)
[2017-10-11] MEDS: Apixaban 5 MG TAB PO SCH ×2 (08:12→20:46)
--- NOTE | 2017-10-11 12:15 | PRG ---
DATE OF SERVICE: 10/11/2017 SUBJECTIVE: The patient said she is better. She is walking better, using a walker and she is transf erring better. OBJECTIVE: The patient is sitting up in her bedside chair. She is alert, talkative, appears very co mfortable, in no distress. Her vital signs shows a temperature of 97.9, pulse 61, respirations 18, O 2 sat 94% on room air, blood pressure 125/59. Her lungs have some chronic rales at the bases. The r emainder of the chest is clear. Heart; regular rate. Extremities; no edema. The patient was able t o stand from the seated position in her chair without any assistance and seemed stable. She was able to take her walker and walk around in the room, sit on her bed, get up, then return to the chair and sit down and then get up with the aid of her walker. She did this very well. She has made excellen t progress and thinks she will do well at home with her family's assistance. Hemoglobin today was 9 .4. ASSESSMENT: 1. Generalized weakness. A. Secondary to a fall with fracture of the left hip on 09/20/2017 and repair on 09/21/2017. B. Prior to fall she was independent of her ADLs. C. Complicated now by some generalized weakness and the need for assistance with her ADLs as of 09/19. D. Improved. Ambulating up to 150 feet with a rolling walker with standby assistance and transferri ng independently with just standby assistance as of 10/11/2017. 2. Hypertension, controlled. 3. Paroxysmal atrial fibrillation. A. Regular rate with good control as of 10/11/2017. B. Has been on anticoagulants with Eliquis, but this has been held since her hip fracture and surger y. C. History of significant bradycardia on metoprolol which she has not been on for over a year. 4. Hypothyroidism. A. Good control on levothyroxine 75 mcg a day with a normal TSH of 1.7. 5. Bipolar disorder. A. Controlled on lithium. 6. Insomnia. A. Improved. The patient is using one of her hydrocodone at nighttime. She says she sleeps very we ll with this and not using the trazodone as of 10/11/2017. 7. Anemia. A. Secondary to recent blood loss from hip fracture and surgical repair. B. Required transfusion in the postop period with 2 units of packed RBCs. C. Hemoglobin 9.4 as of 10/11/2017. 8. Urge incontinence. A. Controlled with oxybutynin. 9. Tobacco abuse. A. Continues to smoke less than a half a pack of cigarettes a day. 10. Generalized osteoarthritis. PLAN: Continue PT, continue OT, continue the Eliquis. Plan on discharge in the morning. The family is making preparations.
[2017-10-11 17:08] VITALS: BMI 17.8
[2017-10-11] MEDS: Oxybutynin 5 MG TAB PO SCH (20:47)
[2017-10-12] MEDS: HYDROcodone/Acetaminophen 10/325 mg Tablet PO PRN (02:15)
[2017-10-12] MEDS: Levothyroxine Sodium 75 MCG TAB PO SCH (06:03)
[2017-10-12 07:32] VITALS: BP 127/66; TEMP 97.5
[2017-10-12] MEDS: Apixaban 5 MG TAB PO SCH (09:05)
[2017-10-12] MEDS: Docusate 100 MG CAP PO SCH (09:06)
--- NOTE | 2017-10-12 15:14 | DIS ---
DATE OF ADMISSION: To extended care on 09/27/2017 DATE OF DISCHARGE: 10/12/2017 FINAL DIAGNOSES: 1. Generalized weakness. A. Secondary to a fall with fracture of the left hip on 09/20/2017 and repair on 09/21/2017. B. Prior to fall she was independent of her ADLs. C. Complicated now by some generalized weakness and the need for assistance with her ADLs as of 09/19. D. Improved. Ambulating up to 150 feet with a rolling walker with standby assistance and transferri ng independently with just standby assistance as of 10/12/2017. 2. Hypertension, controlled. 3. Paroxysmal atrial fibrillation. A. Regular rate with good control as of 10/12/2017. B. Eliquis has been restarted and hemoglobin has remained stable. C. History of significant bradycardia on metoprolol which she has not been on for over a year. 4. Hypothyroidism. A. Good control on levothyroxine 75 mcg a day with a normal TSH of 1.7. 5. Bipolar disorder. A. Controlled on lithium. 6. Insomnia. A. Secondary to some pain. Using an analgesic at nighttime to help her rest as of 10/12/2017. 7. Anemia. A. Secondary to recent blood loss from hip fracture and surgical repair. B. Required transfusion in the postop period with 2 units of packed RBCs. C. Hemoglobin 9.4 as of 10/11/2017. 8. Urge incontinence. A. Controlled with oxybutynin. 9. Tobacco abuse. A. Continues to smoke less than a half a pack of cigarettes a day. 10. Generalized osteoarthritis. SUMMARY: The patient is an 87-year-old white female, who has a history of hypertension; paroxysmal a trial fibrillation, for which she has been on Eliquis; hypothyroidism; bipolar disorder, controlled, on lithium; insomnia; and cigarette abuse. The patient is independent of all her ADLs. She lives at home with her and assists him with all his ADLs. She has a daughter that lives next door. The patient had a fall when she had taken her to see the cardio clinician. The fall happened wh en her stumbled and fell into her and knocked her over. She has immediate pain in her left h ip and could not get up. Witnesses came to her aid and EMS was summoned. She was taken to the emerg ency room and found to have a left intertrochanteric fracture of the left hip with mild displacement. She also underwent CT of the brain, which did not show any acute changes. There was only age-relat ed changes. Her chest x-ray was clear, but showed hyperinflation. Echocardiogram showed normal LV f unction with an ejection fraction of 55% to 60% with moderate aortic insufficiency. Her admission he moglobin was 11.2. She was taken to surgery on 09/21/2017 by orthopedic surgeon, Dr. Collins. She u nderwent intermedullary carloz placement and gamma nail. Postop, she did fine, other than some immediat e confusion that was felt to be anesthesia related; this resolved. Her blood count gradually dropped to a low of 6.7, for which she required transfusion. Her Eliquis was stopped and had not been resta rted due to the severe anemia. The patient improved, but was left weak, unable to manage her ADLs in dependently. Her pain was being managed with Tylenol and occasional hydrocodone 10/325. The patient 's atrial fibrillation has been paroxysmal. She had one short episode where it was a little elevated , but then immediately resolved. She is not a candidate for beta blockers. Previously, had had sign ificant problem with bradycardia from the beta blockers. Patient was transferred to [facility] to [facility] care on the evening of 09/27/2017 for continued physical therapy for her weakness and de conditioning followed by hip fracture. HOSPITAL COURSE: The patient did very well during her hospital stay. Her H and H remained stable. Her admission hemoglobin was 9.3. This remained stable. Her Eliquis was restarted at 2.5 mg b.i.d., and on this, the hemoglobin continued to remain stable. Her discharge hemoglobin on 09/21/2017 was 9.4 and she had no problems of any upset stomach or any dark or bloody stools. During her hospitaliz ation, her vital signs remained stable with good blood pressure and O2 sat in the high 90s on room ai r. Her lungs were clear. Occasionally, she had a few little rales at the bases that were more proba roger atelectatic, but by discharge, her lungs were clear. Her heart remained stable throughout her ho spitalization with a regular rate. She had no episodes of tachycardia or significant bradycardia. T he patient made excellent progress with her physical therapy. By the time of her discharge, she was walking up to 150 feet twice a day and at times 250 feet with rolling walker and just standby assista nce. She was transferring independently, but which is standby assistance. On 10/12/2017, she was we ll, feeling much better, and felt that she was strong enough to be able to maintain at home. She obinna es at home with her . Her daughter lives just next door and assists them not only with the ca re of her , but now will be able to assist her. The patient feels competent now, but her leve l of activities will allow her to return to the home with her daughter's aid. Home health will be ar ranged to come out and check on her and also provide OT and PT. The patient did have some nights whe re she has trouble sleeping. She had trouble with this even prior to her hospitalization. [facility] nights where she was just little uncomfortable. She had been tried on trazadone that did not work. She has been taking one of her pain medicines that is the hydrocodone and acetam inophen 10/325, one and this really helped her sleep. When she has not used this, she has been a lit tle more restless, probably secondary to the fracture and repair of that left hip. At home, we will have her try Tylenol 500 mg, which she has at home and takes 2 at bedtime. A few hydrocodone and yariel taminophen 5/325 will be given to use one at evening as a follow back if needed. The patient's incis ion healed well. The skin madai were removed 2 weeks postop. DISPOSITION: 1. Diet: Regular diet. 2. Activities: Ambulate with the use of a walker. 3. Fall precaution: [facility]. They will also provide in-home PT and OT. MEDICATIONS: Acetaminophen 500 mg 2 three times a day as needed for pain, may use 2 of these at bedt julio to help with her sleep; Ritalin inhaler 2 inhalations every 4 hours as needed; Eliquis 2.5 mg b.i .d.; Colace 100 mg b.i.d.; hydrocodone/acetaminophen 5/325, #18, one at bedtime if needed for pain; glenna salterroxine 75 mcg daily; lithium 300 mg daily and lithium 300 mg b.i.d. on Mondays and Fridays; oxy butynin 5 mg q.h.s.; pantoprazole 40 mg daily. FOLLOWUP: The patient will be seen in followup in my office with a CBC and BMP. CODE STATUS: FULL CODE.
== END 2017-10-12 10:04 | disposition home health service (06) | DRG 560 ==
LOC: MADMS 19:01
PROVIDERS: ADMIT Family Medicine; ATTEND Family Medicine
DX: S72.142D Displaced intertrochanteric fracture of left femur, subsequent encounter for closed fracture with routine healing (principal); D62 Acute posthemorrhagic anemia; I10 Essential (primary) hypertension; I48.0 Paroxysmal atrial fibrillation; E03.9 Hypothyroidism, unspecified; F31.9 Bipolar disorder, unspecified; G47.00 Insomnia, unspecified; F17.210 Nicotine dependence, cigarettes, uncomplicated; I35.1 Nonrheumatic aortic (valve) insufficiency; Z86.73 Personal history of transient ischemic attack (TIA), and cerebral infarction without residual deficits; G25.1 Drug-induced tremor; T43.595A Adverse effect of other antipsychotics and neuroleptics, initial encounter; M15.9 Polyosteoarthritis, unspecified; N39.41 Urge incontinence; R00.1 Bradycardia, unspecified
CPT/HCPCS: 36415; 80048; 80053; 80178; 84443; 85025; G8978-GP-CL; G8979-GP-CJ; G8987-GO-CL; G8988-GO-CI